=== PATIENT | female | born 1970 | race Caucasian/White ===

== ENCOUNTER 2016-11-29 16:00 | Emergency (ER) | payer OTHER ==
[2016-11-29 16:27] LABS: BASOPHILS 0.6 % (0-2); EOSINOPHILS 2.8 % (0-7); HEMATOCRIT 42.5 % (36.0-48.0); HEMOGLOBIN 14.3 g/dL (12-16); IMMATURE GRANULOCYTES 0.2 % (0-5); LYMPHOCYTES 27.3 % (15-50); MCH 33.5 pg (26.0-34.0); MCHC 33.6 g/dL (31.0-37.0); MCV 99.5 fL (80.0-100.0); MEAN PLATELET VOLUME 10.4 fL (7.4-10.4); MONOCYTES 8.4 % (2-11); NEUTROPHILS 60.7 % (40-80); PLATELET COUNT 226 10x3/uL (130-400); RBC 4.27 10x6/uL (4.00-5.40); RDW 12.1 % (11.5-14.5); WBC 8.3 10x3/uL (4.8-10.8)
[2016-11-29 16:49] LABS: ALBUMIN 3.4 g/dL (3.4-5.0); ALKALINE PHOSPHATASE 100 U/L (46-116); ALT (SGPT) 39 U/L (10-68); CALC OSMOLALITY 276 mosm/kg (275-300); CHLORIDE - SERUM 103 mmol/L (98-107); GLUCOSE 93 mg/dL (74-106); PROTEIN - SERUM 6.9 g/dL (6.4-8.2); SODIUM 138 mmol/L (136-145); UREA NITROGEN 14 mg/dL (7-18); eGFR NON AFRICAN AMERICAN 63 mL/min (90-120)
[2016-11-29 17:02] LABS: CHOL - HDL RATIO 4.7 ratio (2.3-4.1); CHOLESTEROL, TOTAL 248 mg/dL (0-200); CREATINE KINASE 63 UL (21-215); HDL CHOLESTEROL 53 mg/dL (32-96); LDL CHOLESTEROL 123 mg/dL (0-100); LDL-HDL RATIO 2.3 ratio (1.5-3.5); TRIGLYCERIDE 360 mg/dL (30-200); TROPONIN-I < 0.017 ng/mL (0.000-0.060)
== END 2016-11-29 17:32 | disposition home or self-care (01) ==
LOC: D.ER 16:00
PROVIDERS: Emergency Medicine
DX: R07.89 Other chest pain (principal); I10 Essential (primary) hypertension; K21.9 Gastro-esophageal reflux disease without esophagitis; R05 Cough; R11.0 Nausea; F17.200 Nicotine dependence, unspecified, uncomplicated

== ENCOUNTER 2017-03-19 17:27 | Observation (INO) | payer OTHER ==
[2017-03-19 18:24] LABS: BASOPHILS 0.3 % (0-2); EOSINOPHILS 3.5 % (0-7); HEMATOCRIT 42.8 % (36.0-48.0); HEMOGLOBIN 14.7 g/dL (12-16); IMMATURE GRANULOCYTES 0.2 % (0-5); LYMPHOCYTES 23.5 % (15-50); MCH 32.5 pg (26.0-34.0); MCHC 34.3 g/dL (31.0-37.0); MCV 94.7 fL (80.0-100.0); MONOCYTES 7.3 % (2-11); NEUTROPHILS 65.2 % (40-80); PLATELET COUNT 225 10x3/uL (130-400); RBC 4.52 10x6/uL (4.00-5.40); RDW 12.1 % (11.5-14.5); WBC 9.9 10x3/uL (4.8-10.8)
[2017-03-19 18:39] LABS: ALBUMIN 3.3 g/dL (3.4-5.0); ALKALINE PHOSPHATASE 139 U/L (46-116); ALT (SGPT) 45 U/L (10-68); BILIRUBIN - TOTAL 0.36 mg/dL (0.2-1.3); CALC OSMOLALITY 279 mosm/kg (275-300); CALCIUM 8.9 mg/dL (8.5-10.1); CARBON DIOXIDE 26.4 mmol/L (21.0-32.0); CHLORIDE - SERUM 106 mmol/L (98-107); CREATININE - SERUM 0.9 mg/dL (0.6-1.3); GLUCOSE 112 mg/dL (74-106); POTASSIUM - SERUM 3.8 mmol/L (3.5-5.1); PROTEIN - SERUM 6.8 g/dL (6.4-8.2); SODIUM 140 mmol/L (136-145); UREA NITROGEN 13 mg/dL (7-18); eGFR NON AFRICAN AMERICAN 72 mL/min (90-120)
[2017-03-19 18:47] LABS: PRO BNP 38 pg/mL (0-125)
[2017-03-19 18:48] LABS: TROPONIN-I < 0.017 ng/mL (0.000-0.060)
[2017-03-19 18:50] LABS: APPEARANCE CLEAR (CLEAR); BACTERIA FEW /hpf (NONE SEEN); BILIRUBIN NEGATIVE (NEGATIVE); COLOR YELLOW (YELLOW); EPITHELIAL CELLS 0-5 /hpf (0-5); GLUCOSE NEGATIVE (NEGATIVE); KETONE NEGATIVE (NEGATIVE); NITRITE NEGATIVE (NEGATIVE); PROTEIN NEGATIVE (NEGATIVE); RED CELLS - URINE 0-5 /hpf (0-5); SPECIFIC GRAVITY 1.015 (1.005-1.020); UROBILINOGEN NORMAL (NORMAL)
[2017-03-19 22:59] LABS: CKMB 0.3 U/L (0.0-3.6); CREATINE KINASE 91 UL (21-215)
[2017-03-19 23:02] LABS: TROPONIN-I < 0.017 ng/mL (0.000-0.060)
[2017-03-20 05:08] LABS: CKMB 0.5 U/L (0.0-3.6); CREATINE KINASE 86 UL (21-215)
[2017-03-20 05:10] LABS: TROPONIN-I < 0.017 ng/mL (0.000-0.060)
[2017-03-20 10:55] LABS: CKMB 0.4 U/L (0.0-3.6); CREATINE KINASE 76 UL (21-215); TROPONIN-I < 0.017 ng/mL (0.000-0.060)
--- NOTE | 2017-04-01 15:46 | EC ---
PATIENT:ANGIE ARROYO DATE OF SERVICE: 03/19/17 SEX: F MEDICAL RECORD: [id number] DATE OF : 72 LOCATION:[facility] [place] AGE OF PATIENT: 46 ADMISSION DATE: 03/19/17 REFERRING PHYSICIAN: INTERPRETING PHYSICIAN: REYNA SMITH MD ECHOCARDIOGRAM REPORT ECHO CHARGES 4 ECHO COMPLETE CLINICAL DIAGNOSIS: DYSPNEA ECHOCARDIOGRAPHIC MEASUREMENTS (adult normal given) AC root (d.<3.7cm) 3.0 cm LV Septum d (<1.2 cm> 1.1 cm Valve Excursion 2.0 cm LV Septum (systole) 1.5 cm Left Atria (s.<4.0cm> 4.2 cm LVPW d(<1.2cm) 1.1 cm RV (d.<2.3cm) 2.9 cm LVPW (sytole) 1.8 cm LV diastole(<5.6CM) 4.6 cm MV E-F(>70mm/sec) cm LV systole 3.3 cm LVOT Diameter 2.0 cm MV exc.(>10mm) cm Est.ejection fraction (50-75%) % Pericardial Effusion N DOPPLER: LVIT cm/sec A 59.0 cm/sec E 87.0 cm/sec LA cm/sec RVSP 28.0 mmHg LVOT 116 cm/sec AOP1/2T m/s Asc. Ao 128 cm/sec RVOT 84.0 cm/sec RA cm/sec PA 95.0 cm/sec AV Gradient Peak 6.6 mmHg AV Mean 3.2 mmHg AV Area 3.0 cm MV Gradient Peak 4.0 mmHg MV Mean 1.6 mmHg MV Area cm COMMENTS: Senior Data Scientist: Noe BARKEROE Estimator And Drafter: 1 Dr. Smith TAPE# PACS DATE OF SERVICE: 03/20/2017 PROCEDURE: Echocardiogram. FINDINGS: 1. Left ventricular chamber size is within normal limits. Left ventricular systolic function is normal. Overall ejection fraction estimated at 55%. 2. The left atrium is mildly dilated at 4.2 cm. Right atrium and right ventricular chamber sizes are within normal limits. 3. Valvular structures have normal structure and motion. ECHOCARDIOGRAM REPORT [id number] ANGIE ARROYO 4. Doppler interrogation reveals no significant valvular insufficiency or stenosis. 5. No evidence of pericardial effusion or left ventricular thrombus. TRANSINT:[id number] Voice Confirmation ID: [id number] DOCUMENT ID: [id number] REYNA SMITH MD at 1546 CC: [id number] DICTATION DATE: 03/20/17 1335 COSMETIC SALES CONSULTANT: 03/20/17 1508 DIS IN 03/20/17 [place] [id number] [place] [id number]
== END 2017-03-20 12:40 | disposition home or self-care (01) ==
LOC: D.ER 17:27 → D.SDCHOLD 22:20 → OBSVTIME 22:20 → D.SDCHOLD 03-20 12:40 → D.ER 03-20 12:40 → D.SDCHOLD 03-20 12:40
PROVIDERS: Emergency Medicine; Family Medicine; ADMIT Family Medicine
DX: R07.89 Other chest pain (principal); R06.00 Dyspnea, unspecified

== ENCOUNTER → 2017-07-17 20:04 | Outpatient (CLI) | payer OTHER | END | disposition home or self-care (01) | LOC: D.MAMMO 14:15 | DX: Z12.31 Encounter for screening mammogram for malignant neoplasm of breast (principal) ==

== ENCOUNTER 2017-09-04 21:55 | Emergency (ER) | payer BC ==
[2017-09-04 23:13] LABS: BASOPHILS 0.5 % (0-2); EOSINOPHILS 3.1 % (0-7); HEMATOCRIT 43.6 % (36.0-48.0); HEMOGLOBIN 15.2 g/dL (12-16); IMMATURE GRANULOCYTES 0.2 % (0-5); LYMPHOCYTES 19.9 % (15-50); MCH 33.6 pg (26.0-34.0); MCHC 34.9 g/dL (31.0-37.0); MCV 96.5 fL (80.0-100.0); MEAN PLATELET VOLUME 11.5 fL (7.4-10.4); MONOCYTES 9.1 % (2-11); NEUTROPHILS 67.2 % (40-80); PLATELET COUNT 193 10x3/uL (130-400); RBC 4.52 10x6/uL (4.00-5.40); RDW 12.2 % (11.5-14.5); WBC 10.3 10x3/uL (4.8-10.8)
[2017-09-04 23:32] LABS: ALBUMIN 3.5 g/dL (3.4-5.0); ALKALINE PHOSPHATASE 118 U/L (46-116); ALT (SGPT) 28 U/L (10-68); CALC OSMOLALITY 277 mosm/kg (275-300); CALCIUM 8.9 mg/dL (8.5-10.1); CHLORIDE - SERUM 105 mmol/L (98-107); CREATININE - SERUM 1.1 mg/dL (0.6-1.3); GLUCOSE 118 mg/dL (74-106); POTASSIUM - SERUM 3.5 mmol/L (3.5-5.1); PROTEIN - SERUM 7.1 g/dL (6.4-8.2); SODIUM 138 mmol/L (136-145); UREA NITROGEN 15 mg/dL (7-18); eGFR NON AFRICAN AMERICAN 57 mL/min (90-120)
[2017-09-04 23:43] LABS: CKMB 0.1 U/L (0.0-3.6); CREATINE KINASE 93 UL (21-215)
[2017-09-04 23:48] LABS: TROPONIN-I < 0.017 ng/mL (0.000-0.060)
== END 2017-09-05 02:09 | disposition home or self-care (01) ==
LOC: D.ER 21:55
PROVIDERS: Family Medicine
DX: R55 Syncope and collapse (principal); M25.531 Pain in right wrist; J18.9 Pneumonia, unspecified organism; F17.200 Nicotine dependence, unspecified, uncomplicated; I10 Essential (primary) hypertension

== ENCOUNTER 2018-12-30 00:39 | Emergency (ER) | payer BC ==
[~2018-12-30] VITALS: Ht 165.1 cm; Wt 90.9 kg
[2018-12-30 00:43] VITALS: Ht 165.1 cm; Wt 90.9 kg
[2018-12-30] MEDS ORDERED: BETAPACE 80 MG80 MG PO (00:44)
[2018-12-30] MEDS ORDERED: ALDACTONE50 MG PO (00:45)
[2018-12-30] MEDS ORDERED: HYDROCODONE-A1 UDTA2 PO (03:11)
[2018-12-30 03:44] VITALS: BP 136/82
== END 2018-12-30 03:45 | disposition home or self-care (01) ==
LOC: D.ER 00:39
DX: H57.12 Ocular pain, left eye (principal)

== ENCOUNTER 2019-01-03 21:14 | Emergency (ER) | payer BC ==
[~2019-01-03] VITALS: Ht 165.1 cm; Wt 90.0 kg
[~2019-01-03 21:14] MED LIST: ALDACTONE50 MG PO; BETAPACE 80 MG80 MG PO; HYDROCODONE-A1 UDTA2 PO
[2019-01-03 21:22] VITALS: Ht 165.1 cm; Wt 90.0 kg
[2019-01-03] MEDS ORDERED: ALDACTONE25 MG PO (21:24)
[2019-01-03] MEDS ORDERED: BUTALB-APAP-CA1 EACH PO (22:47)
[2019-01-04 00:07] VITALS: BP 136/82
== END 2019-01-04 00:07 | disposition home or self-care (01) ==
LOC: D.ER 21:14
DX: G43.909 Migraine, unspecified, not intractable, without status migrainosus (principal)

== ENCOUNTER 2020-07-31 20:54 | Observation (INO) | payer BC ==
[~2020-07-31] VITALS: Ht 165.1 cm; Wt 94.8 kg
[~2020-07-31 20:54] MED LIST changes: +ALDACTONE25 MG PO; +BUTALB-APAP-CA1 EACH PO
[2020-07-31 21:24] VITALS: BP 144/92
[2020-07-31 22:08] LABS: BASOPHILS 0.6 % (0-2); EOSINOPHILS 2.6 % (0-7); HEMATOCRIT 45.6 % (36.0-48.0); HEMOGLOBIN 15.5 g/dL (12-16); IMMATURE GRANULOCYTES 0.4 % (0-5); LYMPHOCYTE ABS# 2.06 10x3/uL (1.18-3.74); LYMPHOCYTES 19.3 % (15-50); MCH 33.2 pg (26.0-34.0); MCV 97.6 fL (80.0-100.0); MEAN PLATELET VOLUME 11.1 fL (7.4-10.4); MONOCYTES 7.8 % (2-11); NEUTROPHIL ABS# 7.39 10x3/uL (1.56-6.13); NEUTROPHILS 69.3 % (40-80); PLATELET COUNT 216 10x3/uL (130-400); RBC 4.67 10x6/uL (4.00-5.40); WBC 10.7 10x3/uL (4.8-10.8)
[2020-07-31 22:13] LABS: APTT 25.6 SECONDS (22.8-39.4); CALC OSMOLALITY 279 mosm/kg (275-300); CALCIUM 9.1 mg/dL (8.5-10.1); CARBON DIOXIDE 29.7 mmol/L (21.0-32.0); CHLORIDE - SERUM 104 mmol/L (98-107); GLUCOSE 109 mg/dL (74-106); INR 1.04 (0.85-1.17); POTASSIUM - SERUM 3.9 mmol/L (3.5-5.1); PROTIME 12.6 SECONDS (11.6-15.0); SODIUM 140 mmol/L (136-145); UREA NITROGEN 12 mg/dL (7-18); eGFR NON AFRICAN AMERICAN 62 mL/min (90-120)
[2020-07-31 22:29] LABS: ALBUMIN 3.5 g/dL (3.4-5.0); ALKALINE PHOSPHATASE 116 U/L (30-120); ALT (SGPT) 25 U/L (10-68); BILIRUBIN - TOTAL 0.32 mg/dL (0.2-1.3); CKMB 0.4 U/L (0.0-3.6); CREATINE KINASE 64 UL (21-215); MAGNESIUM - SERUM 2.2 mg/dL (1.8-2.4); PROTEIN - SERUM 6.9 g/dL (6.4-8.2); TROPONIN-I < 0.017 ng/mL (0.000-0.060)
[2020-08-01] VITALS (7 sets, daily range): BP systolic 108–139; BP diastolic 54–85; Ht 165.1 cm; Wt 94.8 kg
[2020-08-01] MEDS ORDERED: BAYER CHEWABLE81 MG PO (00:04)
--- NOTE | 2020-08-01 05:10 | NUR ---
I have reviewed this patient and I concur with the Shift Assessment completed by the Licensed Practical Nurse today this shift.
[2020-08-01 06:13] LABS: BASOPHILS 0.5 % (0-2); EOSINOPHILS 2.9 % (0-7); HEMATOCRIT 45.1 % (36.0-48.0); HEMOGLOBIN 15.2 g/dL (12-16); IMMATURE GRANULOCYTES 0.2 % (0-5); LYMPHOCYTE ABS# 2.82 10x3/uL (1.18-3.74); MCH 32.9 pg (26.0-34.0); MCHC 33.7 g/dL (31.0-37.0); MCV 97.6 fL (80.0-100.0); MEAN PLATELET VOLUME 11.5 fL (7.4-10.4); MONOCYTES 7.5 % (2-11); NEUTROPHIL ABS# 5.53 10x3/uL (1.56-6.13); NEUTROPHILS 58.9 % (40-80); PLATELET COUNT 221 10x3/uL (130-400); RBC 4.62 10x6/uL (4.00-5.40); WBC 9.4 10x3/uL (4.8-10.8)
[2020-08-01 06:37] LABS: CALC OSMOLALITY 283 mosm/kg (275-300); CHLORIDE - SERUM 106 mmol/L (98-107); CHOL - HDL RATIO 4.5 ratio (2.3-4.1); CHOLESTEROL, TOTAL 177 mg/dL (0-200); CKMB 0.4 U/L (0.0-3.6); CREATINE KINASE 58 UL (21-215); CREATININE - SERUM 0.9 mg/dL (0.6-1.3); GLUCOSE 94 mg/dL (74-106); HDL CHOLESTEROL 39 mg/dL (32-96); LDL CHOLESTEROL 105 mg/dL (0-100); LDL-HDL RATIO 2.7 ratio (1.5-3.5); MAGNESIUM - SERUM 2.2 mg/dL (1.8-2.4); PHOSPHOROUS 4.6 mg/dL (2.5-4.9); POTASSIUM - SERUM 3.9 mmol/L (3.5-5.1); SODIUM 142 mmol/L (136-145); TRIGLYCERIDE 167 mg/dL (30-200); TROPONIN-I < 0.017 ng/mL (0.000-0.060); UREA NITROGEN 15 mg/dL (7-18); eGFR NON AFRICAN AMERICAN 70 mL/min (90-120)
--- NOTE | 2020-08-01 10:24 | NUR ---
PATIENT AAOX4, RESP EVEN AND NON LABORED, NO S/S OF DISTRESS, MEDICATIONS ADMINISTERED WITH NO COMPLICATIONS, NO FURTHER NEEDS AT THIS TIME, CLIR ,BLP
[2020-08-01 11:47] LABS: CKMB 0.4 U/L (0.0-3.6); CREATINE KINASE 56 UL (21-215); TROPONIN-I < 0.017 ng/mL (0.000-0.060)
--- NOTE | 2020-08-01 13:31 | NUR ---
I have reviewed this patient and I concur with the Shift Assessment completed by the Licensed Practical Nurse today this shift.
[2020-08-01 17:53] LABS: CKMB 0.4 U/L (0.0-3.6); CREATINE KINASE 63 UL (21-215)
[2020-08-01 17:59] LABS: TROPONIN-I < 0.017 ng/mL (0.000-0.060)
--- NOTE | 2020-08-02 04:48 | NUR ---
I have reviewed this patient and I concur with the Shift Assessment completed by the Licensed Practical Nurse today this shift.
[2020-08-02 05:09] VITALS: BP 109/58
[2020-08-02 05:51] LABS: BASOPHILS 0.9 % (0-2); EOSINOPHILS 4.2 % (0-7); HEMATOCRIT 45.2 % (36.0-48.0); HEMOGLOBIN 14.9 g/dL (12-16); IMMATURE GRANULOCYTES 0.1 % (0-5); LYMPHOCYTE ABS# 2.44 10x3/uL (1.18-3.74); MCH 32.4 pg (26.0-34.0); MCV 98.3 fL (80.0-100.0); MEAN PLATELET VOLUME 11.3 fL (7.4-10.4); MONOCYTES 9.2 % (2-11); NEUTROPHIL ABS# 3.54 10x3/uL (1.56-6.13); NEUTROPHILS 50.6 % (40-80); PLATELET COUNT 223 10x3/uL (130-400)
[2020-08-02 06:17] LABS: ANION GAP 11.8 mmol/L (8-16); CALCIUM 8.6 mg/dL (8.5-10.1); CARBON DIOXIDE 28.1 mmol/L (21.0-32.0); MAGNESIUM - SERUM 2.2 mg/dL (1.8-2.4); PHOSPHOROUS 3.9 mg/dL (2.5-4.9); POTASSIUM - SERUM 3.9 mmol/L (3.5-5.1)
[2020-08-02 08:17] VITALS: BP 139/90
[2020-08-02] MEDS ORDERED: PROTONIX40 MG PO (08:54)
[2020-08-02 11:36] VITALS: BP 124/92
== END 2020-08-02 11:40 | disposition home or self-care (01) ==
LOC: D.ER 20:54 → D.M2 23:36 → OBSVTIME 23:37 → D.M2 08-02 11:40
PROVIDERS: Family Medicine; ADMIT Family Medicine; ATTEND Family Medicine
DX: R07.9 Chest pain, unspecified (principal); I10 Essential (primary) hypertension; Z72.0 Tobacco use; I20.0 Unstable angina; I48.0 Paroxysmal atrial fibrillation